=== PATIENT | male | born 1985 | race Two or more races ===

== ENCOUNTER 2024-12-14 18:31 | Emergency (ER) | payer OTHER ==
[~2024-12-14] VITALS: Ht 175.3 cm; Wt 73.9 kg
[2024-12-14 18:39] VITALS: TEMP 97.6
[2024-12-14] MEDS ORDERED: POLY10DR3 EACHEYE (18:51)
[2024-12-14 19:09] VITALS: BP 148/100; O2SAT 98
== END 2024-12-14 19:06 ==
LOC: ER 18:36
DX: H10.9 Unspecified conjunctivitis (principal); R51.9 Headache, unspecified